=== PATIENT | female | born 1990 | race Two or more races ===

== ENCOUNTER 2022-06-21 02:12 | Emergency (ER) | payer OTHER ==
[~2022-06-21] VITALS: Ht 162.6 cm; Wt 72.7 kg
[2022-06-21 02:20] VITALS: BP 123/89
[2022-06-21] MEDS ORDERED: OxyCODONE HCL/ACETAMINOPHEN 5-325 MG TABLET PO ONE (03:00)
[2022-06-21] MEDS ORDERED: POLY17PO PO (03:02)
[2022-06-21] MEDS ORDERED: PHEN28OI9 TP (03:02)
== END 2022-06-21 03:01 | disposition home or self-care (01) ==
LOC: EMS 02:12
DX: K62.89 Other specified diseases of anus and rectum (principal); Z90.89 Acquired absence of other organs; K64.9 Unspecified hemorrhoids; Z85.038 Personal history of other malignant neoplasm of large intestine
CPT/HCPCS: 99283

== ENCOUNTER 2025-06-11 13:54 | Emergency (ER) | payer OTHER ==
[~2025-06-11] VITALS: Ht 160 cm; Wt 77.3 kg
[~2025-06-11 13:54] MED LIST: PHEN28OI9 TP; POLY17PO62 PO
[2025-06-11 14:42] LABS: PLATELET COUNT (AUTO) 269 K/uL (150-450); RED BLOOD CELL COUNT(AUTO) 5.07 MIL/uL (4.00-5.20); RED CELL DISTRIBUTION WIDTH 16.0 % (11.5-14.5); WHITE BLOOD COUNT (AUTO) 7.5 K/uL (4.5-11.0)
[2025-06-11 14:51] LABS: CALCIUM, TOTAL 8.0 mg/dL (8.8-10.5); CREATININE 0.90 mg/dL (0.60-1.30); GLOMERULAR FILTR. RATE CALC > 60 mL/min (>60); GLUCOSE,RANDOM 98 mg/dL (70-110); SODIUM SERUM 137 mmol/L (136-145); UREA NITROGEN, BLOOD 8 mg/dL (7-18)
[2025-06-11 14:57] VITALS: BP 114/65; PULSE 54; RESP 18; TEMP 98.1; O2SAT 99
[2025-06-11 14:59] LABS: TROPONIN I-HIGH SENSITIVITY Less Than 4 ng/L (<51)
== END 2025-06-11 17:25 | disposition home or self-care (01) ==
LOC: EMS 13:54
DX: R07.89 Other chest pain (principal); F41.9 Anxiety disorder, unspecified; Z90.49 Acquired absence of other specified parts of digestive tract; Z79.899 Other long term (current) drug therapy
CPT/HCPCS: 71045; 80048; 82550; 84484; 85025; 93005; 99285; 36415-L1; 36415-TC